=== PATIENT | female | born 1955 | race Caucasian/White ===

== ENCOUNTER 2021-03-26 13:48 | Outpatient (CLI) | payer MEDICARE | END 2021-03-26 13:49 | disposition home or self-care (01) | LOC: CSHMAMMO 13:48 | PROVIDERS: ATTEND Internal Medicine | DX: Z12.31 Encounter for screening mammogram for malignant neoplasm of breast (principal); Z13.820 Encounter for screening for osteoporosis; N95.9 Unspecified menopausal and perimenopausal disorder; Z80.3 Family history of malignant neoplasm of breast | CPT/HCPCS: 77063; 77067; 77080 ==

== ENCOUNTER 2022-04-02 11:00 | Outpatient (CLI) | payer MEDICARE | END 2022-04-02 11:01 | disposition home or self-care (01) | LOC: CSHMAMMO 11:00 | PROVIDERS: ATTEND Internal Medicine | DX: Z12.31 Encounter for screening mammogram for malignant neoplasm of breast (principal); Z80.3 Family history of malignant neoplasm of breast; Z85.89 Personal history of malignant neoplasm of other organs and systems | CPT/HCPCS: 77063; 77067 ==

== ENCOUNTER 2022-11-20 07:29 | Day surgery (SDC) | payer MEDICARE ==
[2022-11-19 11:04] VITALS: BMI 22.3
[2022-11-20] MEDS ORDERED: Ondansetron PF 4 MG/2 ML Vial ONE (08:25)
[2022-11-20] MEDS ORDERED: Midazolam HCl 2 mg/2 ml Vial ONE (09:50)
[2022-11-20] MEDS ORDERED: PROPOFOL 40 ML ONE (09:50)
[2022-11-20] MEDS ORDERED: Esmolol 100 MG/10 ML VIAL ONE (10:11)
[2022-11-20] MEDS ORDERED: Lidocaine 2% PF 100 mg/5 ml Syringe ONE (10:11)
== END 2022-11-20 14:05 | disposition home or self-care (01) ==
LOC: CSHSDC 07:29
PROVIDERS: ATTEND Internal Medicine Gastroenterology
PROC: 0DB68ZX Excision of Stomach, Via Natural or Artificial Opening Endoscopic, Diagnostic (ICD-10-PCS; principal; 2022-11-20)
DX: Z12.11 Encounter for screening for malignant neoplasm of colon (principal); K57.30 Diverticulosis of large intestine without perforation or abscess without bleeding; K64.9 Unspecified hemorrhoids; K29.50 Unspecified chronic gastritis without bleeding; K31.89 Other diseases of stomach and duodenum; R63.4 Abnormal weight loss; E03.9 Hypothyroidism, unspecified; I48.0 Paroxysmal atrial fibrillation; F41.9 Anxiety disorder, unspecified; F32.A Depression, unspecified; E78.5 Hyperlipidemia, unspecified; E11.9 Type 2 diabetes mellitus without complications; Z88.5 Allergy status to narcotic agent; Z79.899 Other long term (current) drug therapy; Z79.01 Long term (current) use of anticoagulants; Z91.048 Other nonmedicinal substance allergy status; Z68.22 Body mass index [BMI] 22.0-22.9, adult
CPT/HCPCS: 43239; 93005; G0121; 88305; 93010; J2001; J2250; J2405; J2704

== ENCOUNTER 2023-06-12 13:50 | Outpatient (CLI) | payer MEDICARE | END 2023-06-12 13:51 | disposition home or self-care (01) | LOC: CSHMAMMO 13:50 | PROVIDERS: ATTEND Internal Medicine | DX: Z12.31 Encounter for screening mammogram for malignant neoplasm of breast (principal); Z80.3 Family history of malignant neoplasm of breast; Z85.89 Personal history of malignant neoplasm of other organs and systems; N63.11 Unspecified lump in the right breast, upper outer quadrant | CPT/HCPCS: 77063; 77067 ==

== ENCOUNTER 2023-06-17 08:03 | Outpatient (CLI) | payer MEDICARE | END 2023-06-17 08:04 | disposition home or self-care (01) | LOC: CSHMAMMO 08:03 | PROVIDERS: ATTEND Internal Medicine | DX: N63.11 Unspecified lump in the right breast, upper outer quadrant (principal) | CPT/HCPCS: 76642; 77065; G0279 ==

== ENCOUNTER 2024-02-19 09:04 | Outpatient (CLI) | payer MEDICARE | END 2024-02-19 09:05 | disposition home or self-care (01) | LOC: CSHULT 09:04 | PROVIDERS: ATTEND Internal Medicine | DX: N18.31 Chronic kidney disease, stage 3a (principal) | CPT/HCPCS: 76770 ==

== ENCOUNTER 2025-03-11 14:28 | Emergency (ER) | payer MEDICARE ==
[2025-03-11] MEDS ORDERED: predniSONE 20 MG TAB ONE (16:03)
== END 2025-03-11 16:10 | disposition home or self-care (01) ==
LOC: CSHERS 14:28
DX: M25.462 Effusion, left knee (principal); E11.9 Type 2 diabetes mellitus without complications
CPT/HCPCS: 99283; J7512